=== PATIENT | male | born 1950 | race Caucasian/White ===

== ENCOUNTER 2020-07-13 12:58 | Emergency (ER) | payer MEDICARE, OTHER ==
[~2020-07-13] VITALS: Ht 188 cm; Wt 94.6 kg
--- NOTE | 2020-07-13 13:31 | NUR ---
PT WITH C/O DIZZINESS ONLY WHILE LAYING FLAT. PT DENIES VISUAL CHANGES, GROSS NEURO INTACT. PT TO ALL MONITORS AT THIS TIME, AWAITING ERMD EVAL
[2020-07-13] MEDS ORDERED: MECLIZINE CHEWABLE 25 MG TAB PO ONE (14:00)
[2020-07-13] MEDS ORDERED: SODIUM CHLORIDE FLUSH 10ML SYR IVF ONE (14:00)
[2020-07-13] MEDS ORDERED: MECLIZINE CHEWABLE 25 MG TAB ONE (14:06)
[2020-07-13 14:14] LABS: BASOPHILS % (AUTO) 1 % (0-1); EOSINOPHILS % (AUTO) 1 % (1-7); LYMPHOCYTES % (AUTO) 22 % (22-44); MEAN CORPUSCULAR HGB CONC 33.1 g/dL (33.2-36.2); MEAN PLATELET VOLUME 8.6 fL (7.4-10.4); MONOCYTES % (AUTO) 11 % (2-9); NEUTROPHILS % (AUTO) 66 % (42-75); PLATELET COUNT 209 x10^3/uL (130-400); RED BLOOD COUNT 5.28 x10^6/uL (4.38-5.82); RED CELL DISTRIBUTION WIDTH 13.2 % (9.4-14.8)
[2020-07-13 14:18] LABS: MD NO
[2020-07-13 14:24] LABS: ALBUMIN 3.8 g/dL (3.4-5.0); ANION GAP 7 mmol/L (5-15); CALCIUM 9.3 mg/dL (8.5-10.1); CHLORIDE 107 mmol/L (98-107)
[2020-07-13 14:26] LABS: CREATININE 0.99 mg/dL (0.7-1.3)
[2020-07-13] MEDS ORDERED: OMNIPAQUE 350 MG/ML, 100ML BOTTLE ONE (15:15)
--- NOTE | 2020-07-13 15:15 | NUR ---
PT TAKEN TO IMAGING
[2020-07-13 15:32] VITALS: BP 133/93
== END 2020-07-13 17:00 ==
LOC: ED 13:47
DX: R42 Dizziness and giddiness (principal); M54.2 Cervicalgia; R94.31 Abnormal electrocardiogram [ECG] [EKG]; E11.9 Type 2 diabetes mellitus without complications; Z86.73 Personal history of transient ischemic attack (TIA), and cerebral infarction without residual deficits
CPT/HCPCS: 36415; 70450; 70496; 70498; 80048; 82040; 85025; 93005; 99284; Q9967; 99285